=== PATIENT | female | born 1940 ===

== ENCOUNTER → 2020-11-24 | Outpatient (CLI) | payer MEDICARE ==
[2020-11-24 13:23] LABS: BILIRUBIN,URINE NEGATIVE (NEG); CLARITY,URINE TURBID; COLOR,URINE AMBER; NITRITE,URINE NEGATIVE (NEG); PROTEIN,URINE >=300 mg/dL (NEG-TRACE); UROBILINOGEN,URINE 0.2 mg/dL (0.2 mg/dL)
[2020-11-24 13:50] LABS: BACTERIA,URINE FEW /HPF (0-FEW); RBC,URINE 0 /HPF (0-2); WBC,URINE >40 /HPF (0-4)
== END ==
LOC: SPEC 13:07
PROVIDERS: ATTEND Family Medicine
DX: R30.0 Dysuria (principal); R53.1 Weakness; N89.8 Other specified noninflammatory disorders of vagina
CPT/HCPCS: 81001; 87086